=== PATIENT | male | born 1935 | race Caucasian/White ===

== ENCOUNTER 2018-08-17 06:15 | Day surgery (SDC) | payer MEDICARE ==
[2018-08-17] MEDS ORDERED: ALPRAZolam 0.5 MG TAB PO PRN (06:32)
[2018-08-17] MEDS ORDERED: ATORVASTATIN 80 MG TAB PO STA (06:32)
[2018-08-17] MEDS ORDERED: ALPRAZolam 0.25 MG TAB PO PRN (06:32)
[2018-08-17] MEDS ORDERED: NITROGLYCERIN SL TABS 0.4 MG TAB SUBLINGUAL PRN ×3 (06:32→09:35)
[2018-08-17] MEDS ORDERED: SODIUM CHLORIDE 0.9% 1,000 ML in EMPTY BAG 1 BAG IV ONE (06:32)
[2018-08-17] MEDS ORDERED: ASPIRIN 325 MG TAB PO STA (06:32)
[2018-08-17] MEDS ORDERED: MIDAZOLAM 2 MG/2 ML VIAL IVP ONE (07:42)
[2018-08-17] MEDS: fentaNYL (PF) 50 MCG/ML 2 ML AMP IV ONE ×2 (07:45→07:49)
[2018-08-17] MEDS ORDERED: LIDOCAINE 1% INJ 10MG/ML (20 ML MDV) SQ ONE (07:46)
[2018-08-17] MEDS ORDERED: BIVALIRUDIN BOLUS 250 MG/50 ML IV ONE (07:57)
[2018-08-17] MEDS ORDERED: BIVALIRUDIN 250 MG in SODIUM CHLORIDE 0.9% 50 ML IV ONE (07:59)
[2018-08-17] MEDS: NITROGLYCERIN 1000MCG/10ML SYRINGE INTRACORON ONE ×2 (08:02→08:18)
[2018-08-17] MEDS ORDERED: ADENOSINE 90 MG in SODIUM CHLORIDE 0.9% 60 ML IVP ONE (08:04)
[2018-08-17] MEDS ORDERED: TICAGRELOR 90 MG TAB PO ONE (08:13)
[2018-08-17] MEDS ORDERED: MAG HYDROX/AL HYDROX/SIMETH 30 ML CUP PO PRN (08:30)
[2018-08-17] MEDS ORDERED: ATROPINE SULFATE 0.1 MG/ML 10ML SYRINGE IV PRN (08:30)
[2018-08-17] MEDS ORDERED: RX INFO: IV CONTRAST WAS GIVEN 1 EACH MISC MISCELLANE PRN (08:30)
[2018-08-17] MEDS ORDERED: ZOLPIDEM 5 MG TAB PO PRN (08:30)
[2018-08-17] MEDS ORDERED: IOPAMIDOL-370 100ML BTL INJ ONE (08:32)
[2018-08-17] MEDS: SODIUM CHLORIDE 0.9% 1,000 ML IV SCH ×2 (08:35→18:26)
--- NOTE | 2018-08-17 09:15 | PTCA ---
PERCUTANEOUSTRANS CORORONARY ANGIOGRAPHY DATE OF SERVICE: 08/17/2018 PROCEDURE: 1. Fractional flow reserve assessment of a proximal LAD lesion. 2. PTCA and stenting of proximal LAD with a drug-eluting stent. PERFORMED BY: Dr. Qasim Kruse. Moderate conscious sedation time was 39 minute. Patient was administered Versed and fentanyl. His oxygen saturation, hemodynamics and EKG were monitored closely. CLINICAL INFORMATION: Blayne Gaitan is an 82-year-old gentleman who underwent stenting of proximal LAD performed in 1996 with a bare metal stent. Recently because of an abnormal stress test, I performed a cardiac cath which revealed a hazy area of about 60% in the proximal LAD, not critical but moderate. He was advised a fractional flow reserve assessment and PCI and brought in for the procedure. PROCEDURE NOTE: Under local anesthesia and strict aseptic precautions, a 6-Upper Sorbian introducer was placed in the left femoral artery. I used a Verrata wire to measure fractional flow reserve assessment and advance the wire and kept it in the distal aspect of the LAD. An iFR was performed and this was 0.87. An FFR was then performed by the adenosine infusion as per protocol and the values were 0.82 and 0.81. The patient's FFR was borderline not clear-cut evidence of ischemia. However, because of a positive stress test and a hazy area in the mid LAD within the previously placed stent, I recommended PCI. I explained to the patient and proceeded to perform the procedure. The femoral sheath was placed in the left femoral artery. Using the same wire, I advanced an 18 mm long 3.25 caliber Xience drug-eluting stent and deployed this at 13 atmospheres. The patient had chest pain and precordial ST elevation. Excellent angiographic result was achieved. The sheath was taken out and Angio-Seal device used to secure hemostasis. He received Brilinta 180 mg orally. He also received Angiomax bolus and infusion as per protocol. The patient's FFR was about 0.81 and 0.82. His iFR was 0.87. I performed PCI with a drug-eluting stent to the proximal LAD, which was a in-stent restenosis with excellent angiographic result. Findings and results were discussed with the patient and family and I expect he will be discharged tomorrow. MMODL / IJN: [id number] /
[2018-08-17] MEDS ORDERED: GLUCOSAMINE CHONDR MSM PO SCH (09:35)
[2018-08-17] MEDS ORDERED: amLODIPine 5 MG TAB PO STA (10:29)
[2018-08-17] MEDS ORDERED: NITROGLYCERIN SL TABS 0.4 MG TAB SUBLINGUAL STA (10:29)
[2018-08-17] MEDS ORDERED: MULTIVITAMINS, THERA 1 EACH TAB PO SCH (18:00)
[2018-08-17] MEDS: LORATADINE 10 MG TAB PO SCH (18:23)
[2018-08-17] MEDS: ZINC SULFATE 220 MG CAP PO SCH (18:23)
[2018-08-17 18:38] VITALS: BMI 32.9
[2018-08-17] MEDS ORDERED: ISOSORBIDE MONONITRATE ER 30 MG TAB.ER.24H PO SCH (21:00)
[2018-08-17] MEDS ORDERED: ATORVASTATIN 80 MG TAB PO SCH (21:00)
[2018-08-18 06:12] LABS: Basophils % (A) 1 %; Eosinophils # (A) 0.1 k/uL (0-0.7); Eosinophils % (A) 2 %; HCT 43.7 % (39.0-53.0); HGB 14.8 gm/dL (13.0-17.5); Lymphocytes # (A) 1.5 k/uL (1.0-4.8); Lymphocytes % (A) 29 %; MCH 34.4 pg (25.0-35.0); MCHC 33.9 g/dL (31.0-37.0); MCV 101.5 fL (80.0-100.0); Macrocytosis Slight; Mean Platelet Volume 6.5; Monocytes # (A) 0.3 k/uL (0-1.0); Monocytes % (A) 6 %; Neutrophils % (A) 60 %; Platelet Count 170 k/uL (150-450); RBC 4.31 m/uL (4.30-5.90); RDW 14.5 % (11.5-15.5)
--- NOTE | 2018-08-18 07:46 | DS ---
DISCHARGE SUMMARY DATE OF ADMISSION: 08/17/2018 DATE OF DISCHARGE: 08/18/2018 DIAGNOSIS: Unstable angina. PROCEDURES PERFORMED: FFR of LAD and PTCA and stenting of proximal LAD with a drug-eluting stent. Mr. Gaitan was brought in for the FFR of LAD which was a lesion that had a previous stent in 1996, which was a bare metal stent. He was brought in for FFR because of a moderate lesion. FFR was about 0.81 borderline, but because of abnormal stress test and hazy-appearing lesion, I performed stenting of this vessel with a 3.25 caliber drug- eluting 18 mm stent with excellent angiographic result. Postprocedure course was uneventful. This morning, his vital signs are stable there is no JVD. S1-S2 heard normally short systolic murmur noted at the base. Lungs are clear abdomen looks exam unchanged right groin and left groin are both clean and dry. Procedure was performed from the left femoral approach. His CBC is unremarkable EKG is unremarkable. Uneventful course last night. The BMP is pending. This will be checked and patient will then be discharged and I will see him in the office in one week. Discharge instructions regarding activity, diet and medications were given. MMODL / IJN: [id number] /
[2018-08-18 08:06] VITALS: BP 136/99; PULSE 65; RESP 18; TEMP 97.5
[2018-08-18] MEDS: ZINC SULFATE 220 MG CAP PO SCH (08:33)
[2018-08-18] MEDS: LORATADINE 10 MG TAB PO SCH (08:33)
[2018-08-18 08:44] LABS: Calcium 9.7 mg/dL (8.4-10.2); Potassium 4.5 mmol/L (3.5-5.1)
[2018-08-18] MEDS ORDERED: ASCORBIC ACID 500 MG TAB PO SCH (09:00)
[2018-08-18] MEDS ORDERED: CHOLECALCIFEROL 1,000 UNIT TAB PO SCH (09:00)
[2018-08-18] MEDS ORDERED: ATENOLOL 25 MG TAB PO SCH (09:00)
[2018-08-18] MEDS ORDERED: ASPIRIN 81 MG PO SCH (09:00)
[2018-08-18] MEDS ORDERED: LISINOPRIL-HCTZ 20-25 MG 1 EACH TAB PO SCH (09:00)
[2018-08-18] MEDS ORDERED: CLOPIDOGREL 75 MG TAB PO SCH (09:00)
== END 2018-08-18 09:26 | disposition home or self-care (01) ==
LOC: CATHCVL 06:15 → 3SCARD 16:33 → CATHCVL 08-18 09:26
PROVIDERS: ATTEND Internal Medicine Interventional Cardiology
DX: I25.110 Atherosclerotic heart disease of native coronary artery with unstable angina pectoris (principal); T82.855A Stenosis of coronary artery stent, initial encounter; R94.39 Abnormal result of other cardiovascular function study; I10 Essential (primary) hypertension; E78.5 Hyperlipidemia, unspecified; E78.00 Pure hypercholesterolemia, unspecified; Z79.82 Long term (current) use of aspirin; Z98.61 Coronary angioplasty status; Z79.899 Other long term (current) drug therapy; Z72.0 Tobacco use
CPT/HCPCS: 93571; 80048; 85025; C9600; C1760; C1887; C1894; C1769 ×2; C1874; J2250; J2001; J3010; J0583; J0153; Q9967

== ENCOUNTER 2018-11-23 08:59 | Emergency (ER) | payer MEDICARE ==
[2018-11-23 09:12] VITALS: RESP 18; TEMP 97.7
[2018-11-23] MEDS ORDERED: KETOROLAC 60 MG/2 ML VIAL IM STA (09:28)
--- NOTE | 2018-11-23 09:31 | ED ---
General Adult HPI - General Chief complaint: Extremity Injury, Lower Stated complaint: Hip pain down to knee Time Seen by Provider: 11/23/18 09:00 Source: patient, RN notes reviewed Mode of arrival: wheelchair Limitations: no limitations - History of Present Illness Initial comments: This is an 82-year-old male who presents emergency Department complaining of 2 day history of pain in his right hip that radiates to the anterior aspect of his thigh. Patient states it's worse with standing and better with lying down. Patient states movement of leg does not seem to hurt at unless he standing on it. Patient denies any weakness to that leg he states is just painful to stand on. Patient states she's had chronic back pain but he doesn't know exactly from what. Patient denies any abdominal pain. Patient denies any recent injury or trauma. Patient denies any recent fever chills. Patient denies any numbness or weakness. - Related Data Home Medications Medication Instructions Recorded Confirmed Atenolol 25 mg PO DAILY 04/20/15 11/23/18 Cholecalciferol [Vitamin D3] 2,000 unit PO DAILY 04/20/15 11/23/18 Glucosamine-Chondr 500-400Mg 1,500 mg PO DAILY 04/20/15 11/23/18 Lisinopril-Hctz 20-25 mg 1 tab PO DAILY 04/20/15 11/23/18 [Zestoretic 20-25] Loratadine [Claritin] 10 mg PO DAILY 04/20/15 11/23/18 Zinc 50 mg PO DAILY 04/20/15 11/23/18 Atorvastatin Calcium [Lipitor] 80 mg PO HS 08/13/18 11/23/18 Albuterol Sulfate [Proair Hfa] 2 puff INHALATION RT-Q6H PRN 11/23/18 11/23/18 Famotidine [Pepcid] 20 mg PO DAILY 11/23/18 11/23/18 Multivitamins, Thera [Multivitamin 1 tab PO DAILY@1200 11/23/18 11/23/18 (formulary)] Nitroglycerin Sl Tabs [Nitrostat] 0.4 mg SUBLINGUAL Q5M PRN 11/23/18 11/23/18 Previous Rx's Medication Instructions Recorded Aspirin 81 mg PO DAILY chew 08/18/18 Clopidogrel [Plavix] 75 mg PO DAILY #90 tab 08/18/18 predniSONE 40 mg PO DAILY #8 tab 11/23/18 Allergies Allergy/AdvReac Type Severity Reaction Status Date / Time No Known Allergies Allergy Verified 11/23/18 10:21 Review of Systems ROS Statement: Those systems with pertinent positive or pertinent negative responses have been documented in the HPI. ROS Other: All systems not noted in ROS Statement are negative. Past Medical History Past Medical History: Coronary Artery Disease (CAD), GERD/Reflux, Hyperlipidemi a, Hypertension, Syncope Additional Past Medical History / Comment(s): Cellulitis in lt lower ext. in 2011, syncope years ago and has resolved. Has problems with sleep apnea, but not dx. History of Any Multi-Drug Resistant Organisms: None Reported Past Surgical History: Heart Catheterization, Heart Catheterization With Stent Additional Past Surgical History / Comment(s): colonoscopy, egd, 08/05/18 heart cath 08/17 AT [facility] STENT LAD Past Anesthesia/Blood Transfusion Reactions: No Reported Reaction Date of Last Stent Placement:: 1996 Past Psychological History: No Psychological Hx Reported Smoking Status: Former smoker Past Alcohol Use History: None Reported Past Drug Use History: None Reported - Past Family History Mother Family Medical History: Coronary Artery Disease (CAD) Father Family Medical History: Coronary Artery Disease (CAD) General Exam - General Exam Comments Initial Comments: GENERAL: Patient is well-developed and well-nourished. Patient is nontoxic and well-hydrated and is in mild distress. ENT: Neck is soft and supple. No significant lymphadenopathy is noted. Oropharynx is clear. Moist mucous membranes. Neck has full range of motion without eliciting any pain. EYES: The sclera were anicteric and conjunctiva were pink and moist. Extraocular movements were intact and pupils were equal round and reactive to light. Eyelids were unremarkable. PULMONARY: Unlabored respirations. Good breath sounds bilaterally. No audible rales rhonchi or wheezing was noted. CARDIOVASCULAR: There is a regular rate and rhythm without any murmurs gallops or rubs. ABDOMEN: Soft and nontender with normal bowel sounds. SKIN: Skin is clear with no lesions or rashes and otherwise unremarkable. NEUROLOGIC: Patient is alert and oriented x3. Cranial nerves II through XII are grossly intact. Motor and sensory are also intact. Normal speech, volume and content. Symmetrical smile. Straight leg test is normal MUSCULOSKELETAL: Normal extremities with adequate strength and full range of motion. Patient has no reproducible pain of the hip and lower back or leg.. LYMPHATICS: No significant lymphadenopathy is noted PSYCHIATRIC: Normal psychiatric evaluation. Limitations: no limitations Course Vital Signs 11/23/18 09:08 Temperature 97.7 F Pulse Rate 61 Respiratory 18 Rate Blood Pressure 148/79 O2 Sat by Pulse 96 Oximetry Medical Decision Making - Medical Decision Making X-ray of the hip shows no acute abnormality. X-ray of the lumbosacral spine showed no acute abnormality however there is degenerative changes. Disposition Clinical Impression: Sciatica Disposition: HOME SELF-CARE Condition: Good Instructions (If sedation given, give patient instructions): Sciatica (ED) Additional Instructions: Patient can take Tylenol when necessary for pain Prescriptions: predniSONE 40 mg PO DAILY #8 tab Is patient prescribed a controlled substance at d/c from ED?: No Referrals: Ron Dobbins DO [Primary Care Provider] - 1-2 days Time of Disposition: 10:32
--- NOTE | 2018-11-23 10:17 | XR ---
EXAMINATION TYPE: XR Hip LT and AP Pelvis DATE OF EXAM: 11/23/2018 COMPARISON: None HISTORY: Pain TECHNIQUE: 2 view left hip supplemented with AP pelvis FINDINGS: Femoral head articulate with the acetabulum. Joint spaces preserved. Some acetabular spurri ng is noted. Right femoral head articulates with the acetabulum. Acetabular spurring is present. Joint spaces pres erved. Sacroiliac joints appear patent. Symphysis pubis is unremarkable. No acute fractures are evide nt. Normal bowel gas is present. IMPRESSION: 1. Normal left hip and AP pelvis
--- NOTE | 2018-11-23 10:18 | XR ---
EXAMINATION TYPE: XR lumbosacral spine min 4V DATE OF EXAM: 11/23/2018 COMPARISON: 05/03/2013 HISTORY: Pain TECHNIQUE: Lumbar spine is examined in 5 views. FINDINGS: There 5 lumbar-type vertebral bodies. Pedicles are intact. Facet degenerative changes prese nt. Degenerative disc changes present diffusely greater in the upper lumbar spine. Spondylosis is pre sent. IMPRESSION: 1. Degenerative type changes. No acute osseous abnormality.
[2018-11-23 11:27] VITALS: BP 135/76; PULSE 84
== END 2018-11-23 11:32 | disposition home or self-care (01) ==
LOC: EC 08:59
DX: M47.27 Other spondylosis with radiculopathy, lumbosacral region (principal); I25.10 Atherosclerotic heart disease of native coronary artery without angina pectoris; K21.9 Gastro-esophageal reflux disease without esophagitis; E78.5 Hyperlipidemia, unspecified; I10 Essential (primary) hypertension; Z87.891 Personal history of nicotine dependence; Z79.899 Other long term (current) drug therapy; Z95.5 Presence of coronary angioplasty implant and graft
CPT/HCPCS: 72110; 73502; 99283; 96372; J1885

== ENCOUNTER → 2018-12-21 | Outpatient (CLI) | payer MEDICARE ==
--- NOTE | 2018-12-21 11:14 | MR ---
MR left hip HISTORY: Trochanteric bursitis, left hip pain Multiplanar multisequence imaging through the pelvis with small [id number] images of the left hip. Correlation to plain film 11/23/2018 There is increased T2 signal present at the site of patient's subcutaneous tissues superficial to the greater trochanters. Degenerative disc changes are noted in lumbar spine. Prostate is enlarged and s hows an inferior impression on the urinary bladder, urinary bladder wall shows thickening possibly du e to chronic outlet obstruction. Some increased signal is noted within the acetabular labrum in the left hip, difficult to exclude a l abral tear, small pericardial labral cyst is suspected at this level. There is small amount of joint fluid present. Bone marrow signal is maintained in the left hip. Articular cartilage signal is normal . No evident gluteus tendon tear or significant trochanteric bursitis. There is no free fluid within the pelvis. IMPRESSION: Acetabular labral tear with para labral cyst is favored. Degenerative disc disease of the lumbar spine.
--- NOTE | 2018-12-22 06:25 | MR ---
EXAMINATION TYPE: MR lumbar spine wo con DATE OF EXAM: 12/21/2018 COMPARISON: None HISTORY: inflammatory spondyopathy CONTRAST: 0 mL intravenous Gadavist. TECHNIQUE: Multiplanar, multisequence images of the lumbar spine were acquired. FINDINGS: L5-S1: L disc bulge is present with anterior thecal sac contact. Facet hypertrophy is mild posterior lateral thecal sac contact. No spinal canal stenosis is present. There is moderate bilateral foramina l narrowing. Lateral recesses are narrowed. L4-L5: Broad-based disc bulge is present. Mild grade 1 spondylolisthesis with disc uncovering is pres ent. There is mild flattening the thecal sac. Marked facet hypertrophy is present. No spinal canal st enosis present. Ligamentum flavum laxity is contributing to lateral canal narrowing. There is moderat e right and left foraminal narrowing. L3-L4: Mild disc space narrowing is present. Residual disc has anterior thecal sac contact. Facet hyp ertrophy and ligamentum flavum laxity is present. A left paracentral disc herniation extending infer iorly has moderate anterior thecal sac compression. There is severe right foraminal narrowing. Modera te left foraminal narrowing is present L2-L3: Broad-based disc bulge is present. A small left paracentral disc herniation is present with mo derate anterior thecal sac compression. No AP spinal canal stenosis is present. The neural foramen ar e patent. Endplate changes are present through this level. L1-L2: Broad-based right paracentral disc bulge is present with anterior thecal sac contact. No spina l canal stenosis is present. Neural foramen are patent T12-L1: No significant disc bulge or disc herniation. No spinal canal stenosis. No foraminal stenos is. . There is a cyst at the anterior inferior pole left kidney. IMPRESSION: 1. Large left paracentral disc herniation contributing to severe left foraminal narrowing at the L3-4 level. 2. Grade 1 spondylolisthesis with disc uncovering in conjunction with facet hypertrophy and ligamentu m flavum laxity is contributing to spinal canal stenosis at the L4-5 level, predominantly within the lateral direction. 3. Small left paracentral disc herniation with moderate anterior thecal sac compression L2-3.
== END | disposition home or self-care (01) ==
LOC: RADMRIMAIN 06:17
PROVIDERS: ATTEND Family Medicine
DX: M48.061 Spinal stenosis, lumbar region without neurogenic claudication (principal); M51.26 Other intervertebral disc displacement, lumbar region; M51.36 Other intervertebral disc degeneration, lumbar region; M43.16 Spondylolisthesis, lumbar region
CPT/HCPCS: 72148

== ENCOUNTER → 2020-03-31 | Outpatient (CLI) | payer MEDICARE ==
--- NOTE | 2020-03-31 09:48 | US ---
EXAMINATION TYPE: US prostate transrectal DATE OF EXAM: 03/31/2020 COMPARISON: NONE CLINICAL HISTORY: R97.20 ELEVATED PROSTATE ANTIGEN. This examination was performed using the transrectal probe. EXAM MEASUREMENTS: Gland Size: 6.3 x 3.3 x 4.9cm Volume: 54.4 Predicted PSA: 6.5 Actual PSA (if available):7.6 Heavily calcified central zone, heterogeneous peripheral zone without obvious mass. IMPRESSION: No suspicious lesion identified. Predicted PSA = volume x 0.12 ng/ml Calculated Volume = 0.5236 x L x W x H
== END | disposition home or self-care (01) ==
LOC: RADUSWWP 07:00
PROVIDERS: ATTEND Family Medicine
DX: R97.20 Elevated prostate specific antigen [PSA] (principal)
CPT/HCPCS: 76872

== ENCOUNTER → 2020-08-24 | Outpatient (CLI) | payer MEDICARE ==
--- NOTE | 2020-08-24 15:51 | US ---
EXAMINATION TYPE: US carotid duplex BILAT DATE OF EXAM: 08/24/2020 COMPARISON: NONE CLINICAL HISTORY: R42 Dizziness and giddiness. EXAM MEASUREMENTS: RIGHT: Peak Systolic Velocity (PSV) cm/sec ----- Right CCA: 87.9 ----- Right ICA: 98.9 ----- Right ECA: 138.0 ICA/CCA ratio: 1.1 RIGHT: End Diastole cm/sec ----- Right CCA: 16.0 ----- Right ICA: 23.2 ----- Right ECA: 15.8 LEFT: Peak Systolic Velocity (PSV) cm/sec ----- Left CCA: 107.0 ----- Left ICA: 92.4 ----- Left ECA: 116.0 ICA/CCA ratio: 0.9 LEFT: End Diastole cm/sec ----- Left CCA: 19.7 ----- Left ICA: 28.7 ----- Left ECA: 15.3 VERTEBRALS (direction of flow): Right Vertebral: Antegrade Left Vertebral: Antegrade Rhythm: Normal Bilateral intimal thickening, elevated velocity: right proximal ECA, no significant stenosis. IMPRESSION: Bilateral intimal thickening, elevated velocity: right proximal ECA, no significant sten osis. Criteria for Assigning % of Stenosis / Diameter reduction (Estimation based on the indirect measurements of the internal carotid artery velocities (ICA PSV). 1. Normal (no stenosis)=ICA PSV < 125 cm/s: ratio < 2.0: ICA EDV<40 cm/s. 2. Less than 50% stenosis=ICA PSV < 125 cm/s: ratio < 2.0: ICA EDV<40 cm/s. 3. 50 to 69% stenosis=ICA PSV of 125 to 230 cm/s: ration 2.0 ? 4.0: ICA EDV 40-100 cm/s. 4. Greater than 70% stenosis to near occlusion= ICA PSV > 230 cm/s: ratio > 4.0: ICA EDV > 100 cm/s. 5. Near occlusion= ICA PSV velocities may be low or undetectable: variable ratio and ICA EDV. 6. Total occlusion=unable to detect flow.
== END | disposition home or self-care (01) ==
LOC: RADUSWWP 14:56
PROVIDERS: ATTEND Family Medicine
DX: I77.89 Other specified disorders of arteries and arterioles (principal)
CPT/HCPCS: 93880

== ENCOUNTER → 2021-03-22 | Outpatient (CLI) | payer MEDICARE ==
[2021-03-22 09:38] LABS: HCT 40.3 % (39.0-53.0); HGB 13.8 gm/dL (13.0-17.5); MCH 34.8 pg (25.0-35.0); MCHC 34.2 g/dL (31.0-37.0); MCV 101.9 fL (80.0-100.0); Macrocytosis Slight; Mean Platelet Volume 7.5; Platelet Count 142 k/uL (150-450); Poikilocytosis Slight; RBC 3.95 m/uL (4.30-5.90); WBC 5.4 k/uL (3.8-10.6)
[2021-03-22 10:08] LABS: Potassium 4.4 mmol/L (3.5-5.1)
== END | disposition home or self-care (01) ==
LOC: LABPAT 08:50
PROVIDERS: ATTEND Internal Medicine Interventional Cardiology
DX: Z01.812 Encounter for preprocedural laboratory examination (principal); R94.39 Abnormal result of other cardiovascular function study
CPT/HCPCS: 36415; 80051; 82565; 84520; 85027

== ENCOUNTER → 2021-04-03 | Day surgery (SDC) | payer MEDICARE ==
[2021-03-30 09:52] VITALS: BMI 33.6
[~2021-04-03] MED LIST: ALPRAZolam 0.25 MG TAB PO PRN; ALPRAZolam 0.5 MG TAB PO PRN; ASPIRIN 325 MG TAB PO STA; ATORVASTATIN 80 MG TAB PO STA; HEPARIN SODIUM,PORCINE 10,000 UNIT in SODIUM CHLORIDE 0.9% 1,000 ML IRRIGATION PRN; HEPARIN SODIUM,PORCINE 2,500 UNIT in SODIUM CHLORIDE 0.9% 250 ML IRRIGATION PRN; IOPAMIDOL-370 100ML BTL INJ ONE; LIDOCAINE 1% INJ 10MG/ML (20 ML MDV) SQ ONE; LISINOPRIL-HCTZ 20-25 MG 1 EACH TAB PO STA; MIDAZOLAM 2 MG/2 ML VIAL IV ONE; NITROGLYCERIN SL TABS 0.4 MG TAB SUBLINGUAL ONE; NITROGLYCERIN SL TABS 0.4 MG TAB SUBLINGUAL PRN; SODIUM CHLORIDE 0.9% 1,000 ML IV SCH; SODIUM CHLORIDE 0.9% 1,000 ML in EMPTY BAG 1 BAG IV SCH; atenoloL 25 MG TAB PO STA
[2021-04-03 07:17] VITALS: RESP 16; TEMP 97.8
[2021-04-03 09:43] VITALS: PULSE 44
[2021-04-03 10:24] VITALS: BP 124/56
--- NOTE | 2021-04-03 11:36 | CC ---
CARDIAC CATHETERIZATION REPORT DATE OF SERVICE: 04/03/2021 PROCEDURE: Left heart catheterization, coronary angiography. PERFORMED BY: Dr. Qasim Kruse. Moderate conscious sedation time was 20 minutes. Patient was administered Versed. Oxygen saturation, hemodynamics and EKG were monitored closely. CLINICAL INFORMATION: Mr. Gaitan is an 85-year-old gentleman with a history of previous LAD, PCI more than 20 years ago and recently in 2019, I performed a repeat PCI of proximal LAD with a drug- eluting stent because of an abnormal FFR. He always had a 50% mid RCA lesion and ostial RCA also had a 40% lesion. The RCA comes off from ectopic a posterior location. He had a positive stress test with anterior wall reversible defect and therefore I recommended cardiac catheterization in view of the fact he had a previous LAD, PCI. The rationale, risks, benefits, options were explained and he was brought in for the procedure electively. PROCEDURE NOTE: Under local anesthesia and strict aseptic precautions, a 6-Vietnamese introducer was placed in the right femoral artery. Previous efforts at the radial were unsuccessful because of severe spasm and tortuosity. Using a JL4 catheter, I performed selective coronary angiography of the left coronary system and using an AL1 catheter, I was able to perform selective coronary angiography of the right coronary artery. A pigtail catheter was used to check LV pressures but LV gram was not performed. The sheath was taken out and Angio-Seal device used to secure hemostasis and he was sent to the room in stable condition. CARDIAC CATHETERIZATION FINDINGS: Left ventricular end-diastolic pressure was about 14 mmHg without any gradient across aortic valve. CORONARY ANGIOGRAPHY FINDINGS: RIGHT CORONARY ARTERY : Technically a dominant vessel, has a posterior location. The ostium has 40% lesion. No damping. Mid RCA has also another 40% lesion and then distally the vessel bifurcates into PDA and PLV, both of which supply a sizable amount of myocardium. The angiographic appearance of RCA is very similar to the previous study from July of 2018. LEFT MAIN CORONARY ARTERY: This is a short, patent vessel, free of significant disease that immediately bifurcates into LAD and circumflex. LEFT ANTERIOR DESCENDING CORONARY ARTERY: Good caliber vessel extends along the anterior wall. The previous stented segment is widely patent with good flow. There is another small ramus that is free of significant disease as well that almost looks like a diagonal. Minor irregularities seen in the mid and distal LAD, but the stented segment is widely patent. LEFT POSTERIOR CIRCUMFLEX CORONARY ARTERY: Nondominant vessel gives off a single large obtuse marginal that runs laterally, has minor irregularities. No significant disease. There is also another first obtuse marginal that comes off from circumflex which has mild diffuse disease. Overall circumflex system has noncritical mild diffuse disease but no significant lesions are noted. LEFT VENTRICULOGRAM: Left ventricular end-diastolic pressure was 14 mmHg without any gradient across aortic valve. FINAL IMPRESSION: This patient has a right dominant system, 40% ostial and a 40% to 45% mid RCA lesion, unchanged dominant RCA. The left system has mild diffuse disease but previously stented LAD is patent. Left main and circumflex have minor irregularities. Distal LAD has minor diffuse irregularities. No significant disease in the left system. RECOMMENDATIONS: Continued medical therapy with risk factor modification. Patient will be discharged today and I will see him in the office this Friday. MMODL / IJN: [id number] /
== END ==
LOC: CATHCVL 06:19
PROVIDERS: ATTEND Internal Medicine Interventional Cardiology
DX: I25.10 Atherosclerotic heart disease of native coronary artery without angina pectoris (principal); I10 Essential (primary) hypertension; E78.5 Hyperlipidemia, unspecified; F17.210 Nicotine dependence, cigarettes, uncomplicated; Z79.82 Long term (current) use of aspirin; Z79.899 Other long term (current) drug therapy; Z20.822 Contact with and (suspected) exposure to COVID-19
CPT/HCPCS: 93458; 87635; C1769 ×3; C1760; C1894; J2250; J2001; Q9967

== ENCOUNTER → 2022-04-09 | Outpatient (CLI) | payer MEDICARE ==
--- NOTE | 2022-04-09 11:44 | MR ---
EXAMINATION TYPE: MR brain wo con DATE OF EXAM: 04/09/2022 COMPARISON: NONE HISTORY: Unsteady when walking, abnormality of gait, vertigo TECHNIQUE: T1-weighted sagittal, T2, FLAIR, and diffusion axial, and T2 coronal coronal views of the brain are submitted. FINDINGS: There is no evidence of acute ischemia. The ventricles, basal cisterns, and sulci overlying the conv exities are consistent with moderate to severe generalized degenerative change. There is mild periven tricular areas of abnormal signal within the white matter.. There is no mass effect. Craniocervical junction maintained. Sella turcica has a normal appearance. Changes of chronic sinusitis noted. Orbits are symmetric. No cerebellopontine angle mass. IMPRESSION: 1. No acute intracranial process. Moderate to severe generalized degenerative change with mild nonspe cific white changes suggestive of remote microvascular ischemia. Slightly greater central component o ccasionally may be associated with normal pressure hydrocephalus correlate clinically.
== END | disposition home or self-care (01) ==
LOC: RADMRIMAIN 10:23
PROVIDERS: ATTEND Family Medicine
DX: G93.89 Other specified disorders of brain (principal)
CPT/HCPCS: 70551

== ENCOUNTER → 2022-10-17 | Outpatient (CLI) | payer MEDICARE | END | disposition home or self-care (01) | LOC: LABWHC1 14:32 | PROVIDERS: ATTEND Psychiatry & Neurology Neurology | DX: R77.9 Abnormality of plasma protein, unspecified (principal); R79.9 Abnormal finding of blood chemistry, unspecified | CPT/HCPCS: 36415; 86334 ==

== ENCOUNTER → 2022-11-27 | Outpatient (CLI) | payer MEDICARE ==
--- NOTE | 2022-11-28 10:22 | MR ---
EXAMINATION TYPE: MR lumbar spine wo con DATE OF EXAM: 11/27/2022 7:59 PM COMPARISON: 12/21/2018. CLINICAL INDICATION:Male, 86 years old with history of M47.816; Low back pain into buttocks and back of thighs TECHNIQUE: Multi planar, multi sequence imaging was performed utilizing: T1-weighted, T2-weighted, a nd turbo inversion recovery imaging of the lumbar spine. IV Contrast: None. FINDINGS: Alignment: The lumbar vertebral bodies have preserved heights with grade 1 anterolisthesis of L3 on L 4. Cord: The conus medullaris and the distal spinal cord appear unremarkable with regards to their signa l intensity and morphology. Multiple levels of bulging of the cauda equina and areas of severe spinal canal stenosis. Bones/Discs: Scattered Modic endplate changes are seen throughout the lumbar spine. Findings are wors e at L2-L3 and L3-L4. Inversion recovery bony edema at the adjoining endplates of L2 and L3 and L3 an d L4. Multilevel disc desiccation. Osteophyte formation disc space narrowing facet joint arthropathy and early Schmorl's nodes are present throughout the spine. T12-L1: No evidence of significant spinal canal stenosis or neural foraminal stenosis. L1-L2: Central disc extrusion with inferior migration up to 4 mm. There is mild spinal canal stenosis . There is facet joint arthropathy with at least moderate bilateral neural foraminal stenosis. L2-L3: Disc bulge with possible left lateral disc extrusion with inferior migration up to 4 mm and fa cet joint arthropathy result in severe spinal canal and severe right and moderate left neural foramin al stenosis. L3-L4: Disc bulge left central disc extrusion best appreciated on sagittal series 301 image 8 with in ferior migration up to 11 mm superior migration up to 4 mm. There is facet joint arthropathy result i n severe spinal canal and severe right and moderate left neural foraminal stenosis. L4-L5: Disc uncovering from grade 1 anterolisthesis and facet joint arthropathy with severe spinal ca nal stenosis and moderate to severe bilateral neural foraminal stenosis. L5-S1: The disc is rounded posterior morphology without significant spinal canal stenosis. Facet join t arthropathy with moderate neural foraminal stenosis. No significant spinal canal or neural foraminal stenosis in the remainder of the visualized levels. Other findings: Left renal simple appearing cyst. IMPRESSION: 1. Severe spinal canal stenosis at L2-L3, L3-L4 and L4-L5. These levels also demonstrate high degree s of neural foraminal stenosis bilaterally. 2. Disc herniations at L3-L4 appears improved from prior. The L1-L2 and L2-L3 appears stable to prio r imaging. 3. Grade 1 anterior views of L4 on L5 this results in severe spinal canal stenosis. 4. Severe degeneration changes throughout the spine as described above with sequela as described abo ve.
== END | disposition home or self-care (01) ==
LOC: RADMRIMAIN 19:11
PROVIDERS: ATTEND Physical Medicine & Rehabilitation
DX: M51.26 Other intervertebral disc displacement, lumbar region (principal); M51.36 Other intervertebral disc degeneration, lumbar region; M48.062 Spinal stenosis, lumbar region with neurogenic claudication; M47.816 Spondylosis without myelopathy or radiculopathy, lumbar region; M43.16 Spondylolisthesis, lumbar region
CPT/HCPCS: 72148